=== PATIENT | male | born 1980 | race African-American/Black ===

== ENCOUNTER 2018-04-21 06:55 | Emergency (ER) | payer SELFPAY ==
[~2018-04-21] VITALS: Ht 170.2 cm; Wt 65.0 kg
[~2018-04-21 06:55] MED LIST: AMOXICILLIN500 MG OR; CEPHALEXIN500 MG PO; ULTRAM50 M1 PO
[2018-04-21 08:06] LABS: HEMATOCRIT 42.1 % (39.0-50.0); HEMOGLOBIN 14.3 g/dl (14.0-18.0); IMMATURE GRANULOCYTES 0.4 % (0.0-5.0); MEAN CELL VOLUME 94.4 fL CALC (80.0-100.0); MEAN CORPUSCULAR HGB 32.1 pG CALC (26.0-32.0); NEUT# 4.88 thou/uL (1.82-7.42); RED BLOOD COUNT 4.46 mill/uL (4.70-6.10); RED CELL DISTRI WIDTH 12.4 % (11.5-15.5)
[2018-04-21 08:09] LABS: BARBITURATES NEGATIVE (NEGATIVE); COCAINE NEGATIVE (NEGATIVE); METHADONE NEGATIVE (NEGATIVE); OXCYCODONE NEGATIVE (NEGATIVE); TETRAHYDROCANNABIONOL POSITIVE (NEGATIVE); TRICYLIC ANTIDEPRESSANTS NEGATIVE (NEGATIVE)
[2018-04-21 08:24] LABS: ALBUMIN 3.9 g/dL (3.2-5.0); ALKALINE PHOSPHATASE 71 u/l (38-126); ANION GAP 9 (6-22 (CALC)); BILIRUBIN, TOTAL 0.3 mg/dL (0.0-1.4); BUN 18 mg/dL (9-20); BUN/CREATININE RATIO 20 (12-20 (CALC)); CARBON DIOXIDE 28 mmol/l (22-30); CHLORIDE 107 mmol/l (95-108); CREATININE 0.9 mg/dL (0.7-1.3); GFR > 60 ML/MIN (>=60 (CALC)); GFR FOR AFR.AMER. > 60 ML/MIN (>=60 (CALC)); SGOT/AST 30 u/l (17-59); SGPT/ALT 29 u/l (21-72); SODIUM 140 mmol/l (137-146); TOTAL PROTEIN 6.7 g/dL (6.3-8.2)
[2018-04-21] MEDS ORDERED: ZITHROMAX250 MG PO (08:28)
[2018-04-21] MEDS ORDERED: VENTOLIN HFA IN (08:28)
[2018-04-21] MEDS ORDERED: MEDDOSEPAK PO (08:28)
[2018-04-21 08:32] VITALS: BP 136/64
== END 2018-04-21 08:37 | disposition home or self-care (01) | DRG 203 ==
LOC: ED 06:55
PROVIDERS: Emergency Medicine
DX: J45.909 Unspecified asthma, uncomplicated (principal); F17.290 Nicotine dependence, other tobacco product, uncomplicated

== ENCOUNTER 2020-05-02 11:16 | Emergency (ER) | payer SELFPAY ==
[~2020-05-02] VITALS: Ht 170.2 cm; Wt 65.9 kg
[~2020-05-02 11:16] MED LIST changes: +MEDDOSEPAK PO; +VENTOLIN HFA IN; +ZITHROMAX250 MG PO
[2020-05-02] MEDS ORDERED: PROAIR HFA108 MCG/AC IN (11:27)
[2020-05-02 11:32] VITALS: BP 123/84
== END 2020-05-02 11:38 | disposition home or self-care (01) | DRG 951 ==
LOC: ED 11:16
DX: Z76.0 Encounter for issue of repeat prescription (principal); J45.909 Unspecified asthma, uncomplicated; F17.200 Nicotine dependence, unspecified, uncomplicated

== ENCOUNTER 2020-05-12 02:19 | Emergency (ER) | payer SELFPAY ==
[~2020-05-12] VITALS: Ht 170.2 cm; Wt 65.0 kg
[~2020-05-12 02:19] MED LIST changes: +PROAIR HFA108 MCG/AC IN
[2020-05-12 02:30] VITALS: BP 148/91
[2020-05-12] MEDS ORDERED: VENTOLIN HFA IN (02:41)
== END 2020-05-12 03:00 | disposition home or self-care (01) | DRG 203 ==
LOC: ED 02:19
DX: J45.909 Unspecified asthma, uncomplicated (principal); Z76.0 Encounter for issue of repeat prescription

== ENCOUNTER 2021-08-23 11:55 | Emergency (ER) | payer SELFPAY ==
[~2021-08-23] VITALS: Ht 170.2 cm; Wt 58.0 kg
[2021-08-23 13:23] VITALS: BP 138/96
== END 2021-08-23 15:36 | disposition left against medical advice (07) | DRG 951 ==
LOC: ED 11:55 → LWOBS 15:34
DX: Z53.21 Procedure and treatment not carried out due to patient leaving prior to being seen by health care provider (principal)

== ENCOUNTER 2022-06-21 17:37 | Emergency (ER) | payer SELFPAY ==
[~2022-06-21] VITALS: Ht 170.2 cm; Wt 61.2 kg
[2022-06-21] VITALS (8 sets, daily range): BP systolic 86–150; BP diastolic 61–94
== END 2022-06-21 20:40 | disposition home or self-care (01) | DRG 605 ==
LOC: ED 17:37
PROC: 2W3UXYZ Immobilization of Right Toe using Other Device (ICD-10-PCS; principal; 2022-06-21)
DX: S90.121A Contusion of right lesser toe(s) without damage to nail, initial encounter (principal); J45.909 Unspecified asthma, uncomplicated; F17.210 Nicotine dependence, cigarettes, uncomplicated; W22.8XXA Striking against or struck by other objects, initial encounter

== ENCOUNTER 2024-04-15 17:52 | Emergency (ER) | payer SELFPAY ==
[~2024-04-15] VITALS: Ht 170.2 cm; Wt 61.4 kg
[2024-04-15] VITALS (13 sets, daily range): BP systolic 122–172; BP diastolic 69–98
[2024-04-15] MEDS ORDERED: ASPIRIN 81 MG/TAB PO ONE (18:00)
[2024-04-15 18:19] LABS: BASO% 0.9 % (0-3); EOS% 9.1 % (0-8); HEMATOCRIT 41.1 % (39.0-50.0); IMMATURE GRANULOCYTES 0.1 % (0.0-5.0); LYMPH% 27.5 % (15-41); MEAN CORPUSCULAR HGB 31.7 pG CALC (26.0-32.0); MEAN CORPUSCULAR HGB CONC 34.1 g/dL CAL (32.0-36.0); MONO% 6.8 % (2-13); NEUT# 4.32 thou/uL (1.82-7.42); NEUT% 55.6 % (42-76); RED BLOOD COUNT 4.42 mill/uL (4.70-6.10)
[2024-04-15 18:31] LABS: CREATININE 1.3 mg/dL (0.7-1.3); POTASSIUM 4.2 mmol/l (3.5-5.1); TOTAL PROTEIN 7.9 g/dL (6.3-8.2)
[2024-04-15 18:35] LABS: ALBUMIN 4.7 g/dL (3.2-5.0); BILIRUBIN, TOTAL 0.5 mg/dL (0.2-1.3)
[2024-04-15] MEDS ORDERED: SODIUM CHLORIDE 0.9% 1,000 ML IV ONE (20:00)
== END 2024-04-15 22:00 | disposition home or self-care (01) | DRG 313 ==
LOC: ED 17:52
PROVIDERS: Emergency Medicine
DX: R07.9 Chest pain, unspecified (principal); J45.909 Unspecified asthma, uncomplicated; F17.200 Nicotine dependence, unspecified, uncomplicated